=== PATIENT | male | born 1985 | race Two or more races ===

== ENCOUNTER 2021-08-19 09:20 | Emergency (ER) | payer MEDICARE, MEDICAID ==
[~2021-08-19] VITALS: Ht 170.2 cm; Wt 100.7 kg
[2021-08-19 09:22] VITALS: BP 114/60
[2021-08-19 10:04] LABS: Urine WBC None Seen /hpf (0 - 3)
[2021-08-19 10:08] LABS: Urine Bacteria NONE SEEN /hpf (None Seen); Urine Blood Negative /uL (Negative); Urine Specific Gravity 1.024 (1.001-1.035)
[2021-08-19 10:29] LABS: Basophils # (auto) 0 10 ^3/uL (0-0.2); Basophils % (auto) 0.4 % (0.0-2.0); Eosinophils # (auto) 0.1 10 ^3/uL (0-0.8); Eosinophils % (auto) 1.4 % (0.0-7.0); Hematocrit 43.7 % (41.0-53.0); Lymphocytes # (auto) 3.1 10 ^3/uL (0.4-5.4); Lymphocytes % (auto) 36.6 % (10.0-50.0); Mean Corpuscular Hemoglobin 31.3 pg (28.0-32.0); Mean Corpuscular Hgb Conc. 34.2 g/dL (32.0-36.0); Mean Corpuscular Volume 91.4 fL (80.0-100.0); Monocytes # (auto) 1.1 10 ^3/uL (0-1.3); Monocytes % (auto) 13.6 % (0.0-12.0); Nucleated Red Blood Cells % 0.2 %; Red Blood Cells 4.79 10^6/uL (4.5-5.90); Red Cell Distribution Width 13.9 % (11.8-14.3); White Blood Cell 8.4 10^3/uL (4.4-10.8)
[2021-08-19 10:57] LABS: Albumin 3.6 g/dL (3.4-5.0); Calcium 8.5 mg/dL (8.5-10.1)
[2021-08-19 11:00] LABS: BUN/Creatinine Ratio 17.9; Bilirubin, Total 0.3 mg/dL (0.2-1.0); Total Protein 8.6 g/dL (6.4-8.2)
[2021-08-19] MEDS ORDERED: METR500T PO (16:28)
[2021-08-19] MEDS ORDERED: CEPH-509 PO (16:28)
== END 2021-08-19 17:33 | disposition home or self-care (01) ==
LOC: ER 09:20
DX: R59.9 Enlarged lymph nodes, unspecified (principal)
CPT/HCPCS: 36415; 74176; 80053; 81001; 85025